=== PATIENT | female | born 1955 | race Caucasian/White ===

== ENCOUNTER 2020-04-11 15:05 | Emergency (ER) | payer BC ==
[~2020-04-11] VITALS: Ht 167.6 cm; Wt 65.8 kg
--- NOTE | 2020-04-11 15:20 | NUR ---
"Abdominal Pain on/off x2wks worse yesterday" Patient a/ox4, breathing even and unlabored, no sob noted, needs attended, c/o severe abdominal pain. Kept comfortable.
[2020-04-11] MEDS ORDERED: MORPHINE SULFATE INJ 2 MG/ML DISP.SYRIN IV ONE (15:30)
[2020-04-11] MEDS ORDERED: ONDANSETRON HCL/PF 4 MG/2 ML VIAL IVP ONE (15:30)
[2020-04-11] MEDS ORDERED: ONDANSETRON HCL/PF 4 MG/2 ML VIAL ONE (15:35)
[2020-04-11] MEDS ORDERED: MORPHINE SULFATE INJ 4 MG/ML DISP.SYRIN ONE (15:36)
[2020-04-11 15:56] LABS: APPEARANCE,URINE CLEAR (CLEAR); BILIRUBIN,URINE LARGE (NEGATIVE); BLOOD, URINE NEGATIVE Ery/uL (NEGATIVE); COLOR,URINE DARK YELLO (YELLOW); KETONES,URINE 40 (NEGATIVE); LEUKOCYTE ESTERASE ,URINE NEGATIVE (NEGATIVE); NITRITE, URINE NEGATIVE (NEGATIVE); PROTEIN,URINE NEGATIVE (NEGATIVE); UGLUCOSE NEGATIVE (NEGATIVE)
[2020-04-11 16:03] LABS: BASOPHILS % (AUTO) 0.7 % (0.0-2.0); EOSINOPHILS % (AUTO) 1.3 % (0.0-6.0); HEMATOCRIT 41 % (33-45); HEMOGLOBIN 14.1 g/dL (11.5-14.8); LYMPHOCYTES # (AUTO) 0.7 /CMM (0.8-4.8); MEAN CORPUSCULAR HGB CONC 34 g/dl (31.0-36.0); MEAN CORPUSCULAR VOLUME 89 fL (82-100); MONOCYTES # (AUTO) 0.4 /CMM (0.1-1.30); MONOCYTES % (AUTO) 6.9 % (2.0-12.0); NEUTROPHILS # (AUTO) 4.1 /CMM (1.8-8.9); NEUTROPHILS % (AUTO) 78.1 % (43.0-81.0); PLATELET COUNT (AUTO) 194 /CMM (150-450); RED BLOOD CELL COUNT(AUTO) 4.63 MIL/uL (4.0-5.2); WHITE BLOOD COUNT (AUTO) 5.3 K/uL (4.3-11.0)
[2020-04-11 16:09] LABS: BACTERIA,URINE 2+ /HPF (None Seen)
--- NOTE | 2020-04-11 16:39 | NUR ---
US TECH AT BEDSIDE
[2020-04-11 16:44] LABS: CREATININE 0.8 mg/dL (0.6-1.3); POTASSIUM 3.8 mmol/L (3.5-5.1)
[2020-04-11 16:49] LABS: ALBUMIN 4.1 g/dL (3.4-5.0); BILIRUBIN,DIRECT 4.6 mg/dL (0.0-0.2); BILIRUBIN,TOTAL 5.5 mg/dL (0.2-1.0); TOTAL PROTEIN, SERUM 9.5 g/dL (6.4-8.2)
--- NOTE | 2020-04-11 17:00 | NUR ---
PATIENT A/OX4, RESTING, NO DISTRESS NOTED, VITALS STABLE. DENIES PAIN AT THIS TIME.
[2020-04-11] MEDS ORDERED: PIPERACILLIN /TAZOBACTAM 3.375 G in IV D5W 50 ML IV ONE (18:00)
[2020-04-11] MEDS ORDERED: PIPERACILLIN /TAZOBACTAM 3.375 G VIAL IV ONE (18:00)
--- NOTE | 2020-04-11 18:33 | NUR ---
CALLED DR. ALLEN
--- NOTE | 2020-04-11 18:54 | NUR ---
PER DR. ARTEAGA, PATIENT WILL NEED A HIGHER LEVEL OF CARE.
--- NOTE | 2020-04-11 19:13 | NUR ---
CALLED ERIC STERN [phone] NURSING OFFICE [phone] ANTONY CALL BACK AFTER 1930 SUP IS [place]
--- NOTE | 2020-04-11 19:36 | NUR ---
PATIENT RESTING, NO DISTRESS NOTED. NEEDS ATTENDED, ENDORSED TO JS AYALA FOR EVELIA.
--- NOTE | 2020-04-11 19:58 | NUR ---
CASE PRESENTED TO [facility] SPOKE TO ESTHER. WILL FAX FACESHEET AND CLINICALS TO .
--- NOTE | 2020-04-11 20:03 | NUR ---
CALLED [facility] AND SPOKE TO TRANSFER CENTER. PER MARYCARMEN , THE HOSPITAL IS AT [facility]
--- NOTE | 2020-04-11 20:23 | NUR ---
spoke to lizzie from [facility] [phone]. fax [phone]
--- NOTE | 2020-04-11 20:28 | NUR ---
CASE PRESENTED TO [facility] TRANSFER CENTER LUCY DOMINGUEZ. WILL FAX FACESHEET AND CLINICALS TO .
--- NOTE | 2020-04-11 20:33 | NUR ---
[facility] CALLED CASE PRESENTED TO LUCY BONILLA FOR HLOC STATES NO GI SPECIALIST AVAILABLE.
--- NOTE | 2020-04-11 20:50 | NUR ---
LEIGHA RENNER TALKING TO DR. VÁZQUEZ AT [facility].
--- NOTE | 2020-04-11 20:52 | NUR ---
DR. VÁZQUEZ ([facility]) ACCEPTED PER [facility]
--- NOTE | 2020-04-11 20:54 | NUR ---
LEIGHA RENNER SPOKE TO DR OLEARY AND ACCEPTED PT AT [facility].
--- NOTE | 2020-04-11 21:50 | NUR ---
YESSENIA SANTANA FROM [facility] NO BEDS AVAILABLE AT THIS TIME.
--- NOTE | 2020-04-11 22:43 | NUR ---
ER SPOKE TO [facility] REGARDING PT.
--- NOTE | 2020-04-11 22:54 | NUR ---
PT ACCEPTED AT [facility] ACCEPTING MD GEOVANNA DAN (HOSPITALIST)/DR. HARPAL VÁZQUEZ (GI) PHONE # FOR REPORT PT WILL GO TO ROOM [facility]
--- NOTE | 2020-04-11 22:59 | NUR ---
TRANSPORT CALLED ([facility]) ETA 30 MIN.
--- NOTE | 2020-04-11 23:09 | NUR ---
REORT GIVEN TO ANGELA HENDERSON [place]
[2020-04-11 23:20] VITALS: BP 159/84
--- NOTE | 2020-04-11 23:26 | NUR ---
PT WAS TRANSFERRED TO [place] [facility] BY [facility] IN STABLE CONDITION. ALL BELONGINGS PICKED UP
== END 2020-04-11 23:33 | disposition short-term general hospital (02) ==
LOC: ER 15:06
DX: K80.43 Calculus of bile duct with acute cholecystitis with obstruction (principal); K76.0 Fatty (change of) liver, not elsewhere classified; I10 Essential (primary) hypertension; Z20.828 Contact with and (suspected) exposure to other viral communicable diseases
CPT/HCPCS: 36415; 71045; 76705; 80048; 80076; 81001; 83690; 85025; 85730; 87086; 87426; 96365; 96375; 99285; C9803; J2270; J2405; J2543; J7060; 81000-TC